=== PATIENT | male | born 1985 | race Caucasian/White ===

== ENCOUNTER 2018-05-05 15:16 | Emergency (ER) | payer OTHER ==
[~2018-05-05] VITALS: Ht 172.7 cm; Wt 56.7 kg
[~2018-05-05 15:16] MED LIST: ASA325 MG; CENTRUM COMPLE1 EACH; DOLOGESIC-DF 51 EACH PO; FOLIC ACID1 MG; PERCOCET 5-3251 EACH; [UNRECOGNIZED DRUG - OTHER] PO
== END 2018-05-05 21:18 | disposition home or self-care (01) ==
LOC: ER 15:16
DX: J03.80 Acute tonsillitis due to other specified organisms (principal)